=== PATIENT | female | born 1955 | race Caucasian/White ===

== ENCOUNTER 2017-11-24 16:10 | Emergency (ER) | payer OTHER ==
[2017-11-24] MEDS: HYDROcodone/APAP 5/325MG 1 TAB TABLET PO ×2 (17:29)
[2017-11-24] MEDS: NEOMY/BACITR/POLYMYXIN OINT PACKET. TP ×2 (17:29)
[2017-11-24] MEDS: ONDANSETRON ODT 4 MG TAB.RAPDIS. PO ×2 (17:29)
[2017-11-24] MEDS: CYCLOBENZAPRINE 10 MG TABLET. PO ×2 (17:29)
[2017-11-24] MEDS: IBUPROFEN 600 MG TABLET. PO ×2 (17:30)
[2017-11-24] MEDS: DIPHTH,PERTUSS(ACELL),TET TOX 0.5 ML DISP.SYRIN. VAX IM ×2 (18:53)
== END 2017-11-24 19:00 | disposition home or self-care (01) ==
LOC: ER 16:10
DX: S01.01XA Laceration without foreign body of scalp, initial encounter (principal); R07.89 Other chest pain; M54.2 Cervicalgia; F32.9 Major depressive disorder, single episode, unspecified; I10 Essential (primary) hypertension; Z90.49 Acquired absence of other specified parts of digestive tract; V43.52XA Car driver injured in collision with other type car in traffic accident, initial encounter; Y93.I9 Activity, other involving external motion; Y92.410 Unspecified street and highway as the place of occurrence of the external cause; Y99.8 Other external cause status
CPT/HCPCS: 12002; 70450; 72125; 90471; 90715; 99284-25; Q0162